=== PATIENT | male | born 1970 | race African-American/Black ===

== ENCOUNTER 2017-11-12 22:20 | Emergency (ER) | payer OTHER ==
[~2017-11-12] VITALS: Ht 185.4 cm; Wt 93.0 kg
[2017-11-12 22:27] VITALS: BP 127/80
--- NOTE | 2017-11-12 22:52 | NUR ---
46Y M BIBA C/O BILAT EYE PAIN OF UNKNOWN ORIGIN. PT STATES LEFT EYE FEELS LIKE THERE IS SAND IN HIS LEFT EYE, L EYE IS RED, PT STATES RIGHT EYE IS WATERY. PT DENIES ANY N/V/D, SOB, CP AT THE MOMENT. PT [id number].
--- NOTE | 2017-11-12 23:00 | NUR ---
Patient being evaluated by physician at bedside.
--- NOTE | 2017-11-12 23:31 | NUR ---
Patient discharged with v/s stable. Written and verbal after care instructions given and explained. Patient alert, oriented and verbalized understanding of instructions. Ambulatory with steady gait. All questions addressed prior to discharge. ID band removed. Patient advised to follow up with PMD. Rx of VASOCON A 0.5%-0.05% given. Patient educated on indication of medication including possible reaction and side effects. Opportunity to ask questions provided and answered.
[2017-11-12 23:32] VITALS: BP 119/79
== END 2017-11-12 23:32 | disposition home or self-care (01) ==
LOC: MED 22:20
DX: H53.8 Other visual disturbances (principal); Z88.8 Allergy status to other drugs, medicaments and biological substances
CPT/HCPCS: 99283